=== PATIENT | female | born 1940 | race Caucasian/White ===

== ENCOUNTER 2017-05-23 06:31 | Emergency (ER) | payer MEDICARE, OTHER ==
[~2017-05-23] VITALS: Ht 157.5 cm; Wt 85.0 kg
[~2017-05-23 06:31] MED LIST: DONE5TAB14 PO; LISI20 PO; METO25 PO; NAME5TAB2 PO; ROSU40 PO
[2017-05-23 06:38] VITALS: BP 185/78; PULSE 65; RESP 16; TEMP 97.8; O2SAT 99
[2017-05-23] MEDS ORDERED: SODIUM CHLORIDE 0.9% FLUSH 10 ML FLUSH IV FLUSH PRN (06:45)
[2017-05-23] MEDS ORDERED: ATOR40TA16 PO (06:50)
[2017-05-23] MEDS ORDERED: LISI40TA PO (06:50)
[2017-05-23] MEDS ORDERED: MEMA1CAP2 PO (06:50)
[2017-05-23] MEDS ORDERED: ESCI10TA PO (06:50)
[2017-05-23] MEDS ORDERED: SENN8.6T36 PO (06:50)
[2017-05-23] MEDS ORDERED: METO25TA3 PO (06:50)
[2017-05-23] MEDS ORDERED: VITA1000 PO (06:50)
[2017-05-23 07:10] VITALS: BP 140/66; PULSE 67; RESP 16; O2SAT 97
[2017-05-23 07:15] LABS: AUTOMATED NEUTROPHIL # 4.3 TH/MM3 (1.8-7.7); BASOPHIL % 0.6 % (0.0-2.0); EOSINOPHIL # 0.2 TH/MM3 (0-0.4); EOSINOPHIL % 3.1 % (0.0-4.0); HEMATOCRIT 39.1 % (35.0-46.0); HEMOGLOBIN 12.9 GM/DL (11.6-15.3); LYMPH % 28.6 % (9.0-44.0); MEAN CELL VOLUME 96.2 FL (80.0-100.0); MEAN CORPUSCULAR HEMOGLOBIN 31.7 PG (27.0-34.0); MEAN PLATELET VOLUME 9.1 FL (7.0-11.0); MONO % 5.8 % (0.0-8.0); MONOCYTE # 0.4 TH/MM3 (0-0.9); NEUT % 61.9 % (16.0-70.0); PLATELET COUNT 234 TH/MM3 (150-450); RED BLOOD COUNT 4.07 MIL/MM3 (4.00-5.30); WHITE BLOOD COUNT 6.9 TH/MM3 (4.0-11.0)
--- NOTE | 2017-05-23 07:17 | PD ---
HPI Chief Complaint: Seizure Time Seen by Provider: 06:44 Travel History International Travel<30 days: No Contact w/Intl Traveler<30days: No Traveled to known affect area: No History of Present Illness HPI 77-year-old woman from [facility]. Staff reports her helping her on the commode when she had 10-15 seconds of shaking and tremor. They're worried she may have had a seizure. Psych clear she was conscious during this event or not. She was over the commode with staff reports she then had incontinence. Patient has dementia is unable to provide any meaningful history. History Past Medical History Narrative Medical Dementia Hypertension hyperlipidemia Atrophic right lower extremity Tetanus Vaccination: Unknown : 4 Para: 4 Social History Alcohol Use: No Tobacco Use: No Allergies-Medications (Allergen,Severity, Reaction): Coded Allergies: No Known Allergies (Verified , 03/13/16) Reported Meds & Prescriptions Reported Meds & Active Scripts Active Reported Metoprolol Tartrate 25 Mg Tab 25 Mg PO BID Vitamin D-1000 (Cholecalciferol) 1,000 Unit Tab 1,000 Units PO DAILY Senna-Tabs (Sennosides) 8.6 Mg Tab 8.6 Mg PO DAILY Namzaric (Memantine-Donepezil) 28-10 Mg Cap 1 Cap PO HS Lisinopril 40 Mg Tab 40 Mg PO DAILY Escitalopram (Escitalopram Oxalate) 10 Mg Tab 10 Mg PO DAILY Atorvastatin (Atorvastatin Calcium) 40 Mg Tab 40 Mg PO HS Review of Systems Except as stated in HPI: all other systems reviewed are Neg Physical Exam Narrative GENERAL: Elderly 77-year-old woman, no acute distress. Pleasantly demented. Minimal speech. SKIN: Focused skin assessment warm/dry. HEAD: Atraumatic. Normocephalic. EYES: Pupils equal and round. No scleral icterus. No injection or drainage. ENT: No nasal bleeding or discharge. Mucous membranes pink and moist. NECK: Trachea midline. No JVD. CARDIOVASCULAR: Regular rate and rhythm. No murmur appreciated. RESPIRATORY: No accessory muscle use. Clear to auscultation. Breath sounds equal bilaterally. GASTROINTESTINAL: Abdomen soft, non-tender, nondistended. Hepatic and splenic margins not palpable. MUSCULOSKELETAL: No obvious deformities. Atrophic right lower extremity NEUROLOGICAL: Awake and alert. Confused. No obvious cranial nerve deficits. Motor grossly within normal limits. Minimal speech. Normal speech. Data Data Last Documented VS Vital Signs Date Time Temp Pulse Resp B/P (MAP) Pulse Ox O2 Delivery O2 Flow Rate FiO2 05/23/17 06:41 Room Air 05/23/17 06:38 97.8 65 16 185/78 (113) 99 Orders Orders Electrocardiogram (05/23/17 06:44) Basic Metabolic Panel (Bmp) (05/23/17 06:44) Complete Blood Count With Diff (05/23/17 06:44) Chest, Single Ap (05/23/17 06:44) Ct Brain W/O Iv Contrast(Rout) (05/23/17 06:44) Ecg Monitoring (05/23/17 06:44) Iv Access Insert/Monitor (05/23/17 06:44) Oximetry (05/23/17 06:44) Sodium Chloride 0.9% Flush (Ns Flush) (05/23/17 06:45) Labs Laboratory Tests Test 05/23/17 06:55 [facility] Medical Decision Making Medical Screen Exam Complete: Yes Emergency Medical Condition: Yes Differential Diagnosis Dementia, tremor, seizure, other Narrative Course Medical decision making Patient with tremors seizure-like episode. 2. Dementia. Looks well. We'll check screening labs, CT, likely discharge. Tim Campbell MD May 23, 2017 07:17
--- NOTE | 2017-05-23 07:19 | RADRPT ---
EXAM DATE/TIME: 05/23/2017 06:59 [facility] COMPARISON: CHEST SINGLE AP, March 13, 2016, 22:55. INDICATIONS : Syncope MEDICAL HISTORY : Hypertension. Dementia. SURGICAL HISTORY : Hysterectomy. ENCOUNTER: Initial ACUITY: 1 day PAIN SCORE: 0/10 LOCATION: Bilateral chest FINDINGS: A single view of the chest demonstrates the lungs to be symmetrically aerated without evidence of mas s, infiltrate or effusion. The cardiomediastinal contours are unremarkable. Osseous structures are intact. CONCLUSION: No acute disease. Baltazar Cloud MD on May 23, 2017 at 7:17 Board Certified Radiologist. This report was verified electronically.
[2017-05-23 07:22] LABS: BICARBONATE 28.4 MEQ/L (21.0-32.0); CALCIUM 8.8 MG/DL (8.5-10.1); CREATININE 0.84 MG/DL (0.50-1.00)
--- NOTE | 2017-05-23 07:38 | RADRPT ---
EXAM DATE/TIME: 05/23/2017 07:25 [facility] COMPARISON: CT BRAIN W/O CONTRAST, March 13, 2016, 22:49. INDICATIONS : Resolved episode of tremors RADIATION DOSE: 33.80 CTDIvol (mGy) MEDICAL HISTORY : Hypertension. SURGICAL HISTORY : Hysterectomy. ENCOUNTER: Initial ACUITY: 1 day PAIN SCALE: 0/10 LOCATION: cranial TECHNIQUE: Multiple contiguous axial images were obtained of the head. Using automated exposure control and adj ustment of the mA and/or kV according to patient size, radiation dose was kept as low as reasonably a chievable to obtain optimal diagnostic quality images. DICOM format image data is available electro nically for review and comparison. FINDINGS: CEREBRUM: The ventricles are normal for age with mild to moderate atrophic change. Extensive chronic small vess el ischemic changes are noted in the deep white matter are 2 stable as well. No evidence of midline s hift, mass lesion, hemorrhage or acute infarction. No extra-axial fluid collections are seen. POSTERIOR FOSSA: The cerebellum and brainstem are intact. The 4th ventricle is midline. The cerebellopontine angle i s unremarkable. EXTRACRANIAL: The visualized portion of the orbits is intact. SKULL: The calvaria is intact. No evidence of skull fracture. CONCLUSION: Stable appearance with no acute hemorrhage or mass effect. There is stable atrophy an d chronic small vessel ischemic change. Baltazar Cloud MD on May 23, 2017 at 7:35 Board Certified Radiologist. This report was verified electronically.
--- NOTE | 2017-05-23 07:56 | PD ---
Data Data Last Documented VS Vital Signs Date Time Temp Pulse Resp B/P (MAP) Pulse Ox O2 Delivery O2 Flow Rate FiO2 05/23/17 07:10 67 16 140/66 (90) 97 Room Air 05/23/17 06:38 97.8 Orders Orders Electrocardiogram (05/23/17 06:44) Basic Metabolic Panel (Bmp) (05/23/17 06:44) Complete Blood Count With Diff (05/23/17 06:44) Chest, Single Ap (05/23/17 06:44) Ct Brain W/O Iv Contrast(Rout) (05/23/17 06:44) Ecg Monitoring (05/23/17 06:44) Iv Access Insert/Monitor (05/23/17 06:44) Oximetry (05/23/17 06:44) Sodium Chloride 0.9% Flush (Ns Flush) (05/23/17 06:45) Ed Discharge Order (05/23/17 07:56) Labs Laboratory Tests Test 05/23/17 06:55 White Blood Count 6.9 TH/MM3 Red Blood Count 4.07 MIL/MM3 Hemoglobin 12.9 GM/DL Hematocrit 39.1 % Mean Corpuscular Volume 96.2 FL Mean Corpuscular Hemoglobin 31.7 PG Mean Corpuscular Hemoglobin Concent 33.0 % Red Cell Distribution Width 13.0 % Platelet Count 234 TH/MM3 Mean Platelet Volume 9.1 FL Neutrophils (%) (Auto) 61.9 % Lymphocytes (%) (Auto) 28.6 % Monocytes (%) (Auto) 5.8 % Eosinophils (%) (Auto) 3.1 % Basophils (%) (Auto) 0.6 % Neutrophils # (Auto) 4.3 TH/MM3 Lymphocytes # (Auto) 2.0 TH/MM3 Monocytes # (Auto) 0.4 TH/MM3 Eosinophils # (Auto) 0.2 TH/MM3 Basophils # (Auto) 0.0 TH/MM3 CBC Comment DIFF FINAL Differential Comment Blood Urea Nitrogen 17 MG/DL Creatinine 0.84 MG/DL Random Glucose 83 MG/DL Calcium Level 8.8 MG/DL Sodium Level 143 MEQ/L Potassium Level 3.8 MEQ/L Chloride Level 109 MEQ/L Carbon Dioxide Level 28.4 MEQ/L Anion Gap 6 MEQ/L Estimat Glomerular Filtration Rate 66 ML/MIN [facility] Medical Record Reviewed: Yes Supervised Visit with CHAYO: No Narrative Course Vital Signs Date Time Temp Pulse Resp B/P (MAP) Pulse Ox O2 Delivery O2 Flow Rate FiO2 05/23/17 07:10 67 16 140/66 (90) 97 Room Air 05/23/17 07:10 67 16 97 Room Air 05/23/17 07:10 67 16 140/66 (90) 97 Room Air 05/23/17 06:41 Room Air 05/23/17 06:38 97.8 65 16 185/78 (113) 99 CBC & BMP Diagram 05/23/17 06:55 Calcium Level 8.8 Last [address] 05/23/17643 Signed Impressions: Service Date/Time: April 07:25 - CONCLUSION: Stable appearance with no acute hemorrhage or mass effect. There is stable atrophy and chronic small vessel ischemic change. Baltazar Cloud MD Chest X-Ray 05/23/1744 Signed Impressions: Service Date/Time: April 06:59 - CONCLUSION: No acute disease. Baltazar Cloud MD EKG: sinus, rate 70, normal axis/intervals; no pre-excitation Please refer to the outgoing provider note. In summary the patient was found to be on the commode with the assistance of facility personnel when she developed a tremor and incontinence. There is some concern for seizure which seems quite unlikely to be new in onset and a 77-year-old female normal head CT and normal lab work. The concern for incontinence is also certainly related to the fact that she was on the commode. Patient is considered reasonably safe for discharge home. She was reassessed at 8 AM by me and found to be resting comfortably in bed. Diagnosis Primary Impression: Tremor Additional Impression: Constipation Qualified Codes: K59.00 - Constipation, unspecified Referrals: Primary Care Physician Med/Other Pt SpecificInfo: No Change to Meds Disposition: 01 DISCHARGE HOME Condition: Stable Mat Mendez MD May 23, 2017 07:55
--- NOTE | 2017-05-23 22:21 | EKG ---
Date Performed: 05/23/2017 Time Performed: 06:36:55 PTAGE: 77 years EKG: Sinus rhythm WITH OCCASIONAL ECTOPIC PREMATURE COMPLEXES BORDERLINE ECG NO PREVIOUS TRACING DOCTOR: Artur Hamlin Interpretating Date/Time 05/23/2017 22:20:18
== END 2017-05-23 11:32 | disposition home or self-care (01) ==
LOC: NEPC 06:31
DX: R25.1 Tremor, unspecified (principal); K59.00 Constipation, unspecified; E78.5 Hyperlipidemia, unspecified; F03.90 Unspecified dementia, unspecified severity, without behavioral disturbance, psychotic disturbance, mood disturbance, and anxiety; I10 Essential (primary) hypertension
CPT/HCPCS: 70450; 71010; 80048; 85025; 93005; 99285